=== PATIENT | female | born 1960 | race Caucasian/White ===

== ENCOUNTER 2016-11-06 05:37 | Outpatient (CLI) | payer OTHER ==
[~2016-11-06] VITALS: Ht 160 cm; Wt 76.2 kg
[2016-11-06] MEDS ORDERED: LEVO100T7 PO (11:48)
[2016-11-06] MEDS ORDERED: ALPR1TAB2 PO (11:48)
[2016-11-06] MEDS ORDERED: CHOL5000 PO (11:48)
[2016-11-06] MEDS ORDERED: HYDR-3820 PO (11:48)
[2016-11-06] MEDS ORDERED: FLUO40CA12 PO (11:48)
[2016-11-06] MEDS ORDERED: CALC600T12 PO (11:48)
[2016-11-06] MEDS ORDERED: VITA100035 PO (11:48)
[2016-11-06] MEDS ORDERED: LUTE20CA13 PO (11:48)
[2016-11-06] MEDS ORDERED: RT-ALBUINH IH (11:48)
[2016-11-06] MEDS ORDERED: OMG1KC PO (11:48)
== END 2016-11-06 11:54 ==
LOC: PREOP 05:37
PROVIDERS: ATTEND Surgery
DX: Z01.818 Encounter for other preprocedural examination (principal); Z12.11 Encounter for screening for malignant neoplasm of colon; K21.9 Gastro-esophageal reflux disease without esophagitis

== ENCOUNTER → 2017-01-22 | Outpatient (CLI) | payer OTHER ==
[~2017-01-22] MED LIST: ALPR1TAB2 PO; CALC600T12 PO; CHOL5000 PO; FLUO40CA12 PO; HYDR-3820 PO; LEVO100T7 PO; LUTE20CA13 PO; OMG1KC PO; PANT40TA2 PO; RT-ALBUINH IH; VITA100035 PO
== END ==
LOC: PREOP 05:30
PROVIDERS: ATTEND Surgery
DX: Z01.818 Encounter for other preprocedural examination (principal); Z12.11 Encounter for screening for malignant neoplasm of colon; K21.9 Gastro-esophageal reflux disease without esophagitis

== ENCOUNTER 2017-01-26 08:11 | Day surgery (SDC) | payer OTHER ==
[~2017-01-26 08:11] MED LIST changes: -PANT40TA2 PO
[2017-01-26 08:15] VITALS: BP 122/73
[2017-01-26] MEDS ORDERED: LACTATED RINGERS 1,000 ML IV STA (08:15)
[2017-01-26] MEDS ORDERED: HURRICAINE EXT TUBE (BENZOCAINE) XX PRN (08:15)
[2017-01-26] MEDS ORDERED: LACTATED RINGERS 1,000 ML IV SCH (09:00)
--- NOTE | 2017-01-26 09:00 | Progress Note-Pre Operative ---
Pre-Operative Progress Note H&P Reviewed The H&P was reviewed, patient examined and no changes noted. Date Seen by Provider: Jan 26, 2017 Time Seen by Provider: 08:58 Date H&P Reviewed: Jan 26, 2017 Time H&P Reviewed: 08:58 Pre-Operative Diagnosis: gerd, family history colonoscopy BELLA VIVEROS DO Jan 26, 2017 9:00 am
[2017-01-26] MEDS ORDERED: PROPOFOL INJECTION 0 ML IV ONE (09:38)
[2017-01-26] MEDS ORDERED: MIDAZOLAM 2 MG/2 ML (VERSED) VIAL ONE (09:38)
[2017-01-26] MEDS ORDERED: HURRICAINE EXT TUBE (BENZOCAINE) ONE (09:41)
[2017-01-26] MEDS ORDERED: PROPOFOL INJECTION 50 ML IV ONE (10:07)
[2017-01-26] MEDS ORDERED: PANT40TA2 PO (10:24)
--- NOTE | 2017-01-26 10:26 | Progress Note-Post Operative ---
Post-Operative Progess Note Surgeon (s)/Bit Bender (s) Surgeon BELLA VIVEROS DO Bit Bender: na Pre-Operative Diagnosis gerd, family history colonoscopy Post-Operative Diagnosis gastritis, diverticulosis Procedure & Operative Findings Date of Procedure 01/26/17 Procedure Performed/Findings egd c biopsies, colonoscopy c hot bx polypectomy Anesthesia Type per mda Estimated Blood Loss Estimated blood loss (mL): none Specimens/Packing Specimens Removed antrum, body, ge junction, rectal polyp BELLA VIVEROS DO Jan 26, 2017 10:26 am
--- NOTE | 2017-01-26 10:28 | Discharge Inst-Simple/Standard ---
Discharge Inst-Standard Discharge Medications New, Converted or Re-Newed RX: RX on Chart Patient Instructions/Follow Up Plan of Care/Instructions/FU: Follow up with Dr. Smith in 2 weeks Take medication as directed. Repeat colonoscopy in 5 years due to family hx of colon Ca. Activity as Tolerated: Yes Discharge Diet: Other Diet (High fiber diet) VAN TA APRN Jan 26, 2017 10:28
[2017-01-26 10:40] VITALS: BP 108/72
[2017-01-26 11:10] VITALS: BP 118/82
[2017-01-26 11:30] VITALS: BP 118/82
--- OUTSIDE RECORDS SUMMARY | 2017-01-26 19:32 | XMS REPORT ---
Author Author TAMMY ALVARADO Organization [employer] Address Unknown Phone Unavailable Care Team Providers Care Bullion Weigher Name Role Phone TAMMY ALVARADO CP Unavailable Allergies No Known Allergies Problems Problem Type Condition Code Onset Dates Condition Status Problem Cervical lesion N88.9 Active Problem Hot flashes N95.1 Active Problem Irregular menses N92.6 Active Problem Tobacco use Z72.0 Active Problem Family history of colon cancer requiring screening colonoscopy Z80.0 Active Problem Adnexal tenderness R10.2 Active Problem Tinea pedis of both feet B35.3 Active Problem Family history of heart disease Z82.49 Active Problem History of chest pain Z87.898 Active Problem Hypothyroidism, unspecified E03.9 Active Problem Family history of hypertension Z82.49 Active Problem Shortness of breath R06.02 Active Problem Chronic cough R05 Active Problem Encounter for screening colonoscopy Z12.11 Active Problem GERD (gastroesophageal reflux disease) K21.9 Active Problem Depression with anxiety F41.8 Active Problem Chronic pain G89.29 Active Problem Atypical chest pain R07.89 Active Problem Obesity E66.9 Active Problem History of renal calculi Z87.442 Active Problem Hypothyroidism E03.9 Active Medications Medication Code System Code Instructions Start Date End Date Status Dosage Hydrocodone-Acetaminophen [facility] [address]-89 10-325 MG Orally 3 times a day prn 1 tablet as needed Alprazolam [facility] [address]-09 1 MG Orally 3 times a day PRN 1 tablet Results No Known Results Summary Purpose eClinicalWorks Submission
--- OUTSIDE RECORDS SUMMARY | 2017-01-26 19:32 | XMS REPORT ---
Author Author TAMMY ALVARADO Organization [employer] Address Unknown Phone Unavailable Care Team Providers Care Caterpillar Mechanic Name Role Phone TAMMY ALVARADO CP Unavailable Allergies No Known Allergies Problems Problem Type Condition Code Onset Dates Condition Status Problem Anxiety disorder, unspecified F41.9 Active Problem Irregular menses N92.6 Active Problem Cervical lesion N88.9 Active Problem Adnexal tenderness R10.2 Active Problem Encounter for screening colonoscopy Z12.11 Active Problem Hypothyroidism, unspecified E03.9 Active Problem Family history of colon cancer requiring screening colonoscopy Z80.0 Active Problem Tobacco use Z72.0 Active Problem History of chest pain Z87.898 Active Problem Hot flashes N95.1 Active Problem Family history of hypertension Z82.49 Active Problem Family history of heart disease Z82.49 Active Problem Chronic cough R05 Active Problem Atypical chest pain R07.89 Active Problem GERD (gastroesophageal reflux disease) K21.9 Active Problem Shortness of breath R06.02 Active Problem Chronic pain G89.29 Active Problem Obesity E66.9 Active Problem History of renal calculi Z87.442 Active Problem Hypothyroidism E03.9 Active Problem Depression with anxiety F41.8 Active Problem Depression, unspecified depression type F32.9 Active Medications No Known Medications Results No Known Results Summary Purpose eClinicalWorks Submission
--- OUTSIDE RECORDS SUMMARY | 2017-01-26 19:32 | XMS REPORT ---
Author Author TAMMY ALVARADO Organization [employer] Address Unknown Phone Unavailable Care Team Providers Care Ceramics Artist Name Role Phone TAMMY ALVARADO CP Unavailable Allergies No Known Allergies Problems Problem Type Condition Code Onset Dates Condition Status Problem Cervical lesion N88.9 Active Problem Hot flashes N95.1 Active Problem Irregular menses N92.6 Active Problem Tobacco use Z72.0 Active Problem Family history of colon cancer requiring screening colonoscopy Z80.0 Active Problem Adnexal tenderness R10.2 Active Assessment Hypothyroidism E03.9 Active Problem Tinea pedis of both feet [...] Instructions Start Date End Date Status Dosage Levothyroxine Sodium [facility] 79871724613 100 MCG Orally Once a day WILL NEED LAB FOR REFILL 1 tablet Results No Known Results Summary Purpose eClinicalWorks Submission
--- OUTSIDE RECORDS SUMMARY | 2017-01-26 19:32 | XMS REPORT ---
Author Author ETELVINA CLEMONS e[employer] Address Unknown Phone Unavailable Care Team Providers Care Tail Sawyer Name Role Phone ETELVINA CLEMONS Unavailable Allergies, Adverse Reactions, Alerts Substance Reaction Event Type Sulfamethoxazole-Trimethoprim Info Not Available Drug Allergy Problems Problem Type Condition Code Onset Dates Condition Status Assessment Vaginal discharge N89.8 Active Assessment Irregular menses N92.6 Active Assessment Breast tenderness N64.4 Active Assessment Hot flashes N95.1 Active Assessment History of chest pain Z87.898 Active Assessment Family history of heart disease Z82.49 Active Assessment Family history of hypertension Z82.49 Active Assessment Hypothyroidism, unspecified E03.9 Active Assessment Adnexal tenderness R10.2 Active Problem Hypothyroidism E03.9 Active Assessment Tobacco use Z72.0 Active Problem Depression, unspecified depression type F32.9 Active Assessment Encounter for screening for malignant neoplasm of cervix Z12.4 Active Problem Anxiety disorder, unspecified F41.9 Active Problem Irregular menses N92.6 Active Problem Cervical lesion N88.9 Active Problem Adnexal tenderness R10.2 Active Problem Hypothyroidism, unspecified E03.9 Active Problem Encounter for screening colonoscopy Z12.11 Active Problem Family history of colon cancer requiring screening colonoscopy Z80.0 Active Problem Tobacco use Z72.0 Active Assessment Well woman exam Z01.419 Active Problem History of chest pain Z87.898 Active Problem Hot flashes N95.1 Active Problem Family history of hypertension Z82.49 Active Problem Family history of heart disease Z82.49 Active Assessment Cervical lesion N88.9 Active Problem Chronic cough R05 Active Assessment Screening for malignant neoplasm of breast Z12.39 Active Problem Atypical chest pain R07.89 Active Assessment Anxiety disorder, unspecified F41.9 Active Problem GERD (gastroesophageal reflux disease) K21.9 Active Assessment Screening for malignant neoplasm of colon Z12.11 Active Problem Shortness of breath R06.02 Active Problem Chronic pain G89.29 Active Assessment Depression, unspecified depression type F32.9 Active Problem Obesity E66.9 Active Problem History of renal calculi Z87.442 Active Problem Depression with anxiety F41.8 Active Medications Medication Code System Code Instructions Start Date End Date Status Dosage Omeprazole [facility] [address]-16 20 MG Orally Once a day Jul 25, 2015 2 capsules Baclofen [facility] [address]-47 10 MG Orally Three times a day PRN Jul 25, 2015 Aug 24, 2015 1 tablet with food or milk Hydrocodone-Acetaminophen [facility] [address]-63 10-325 MG Orally 3 times a day prn 1 tablet as needed Prozac [facility] [address]-24 40 MG Orally Once a day 1 capsule in the morning ProAir HFA [facility] [address]-19 108 (90 Base) MCG/ACT Inhalation every 4 hrs, PRN 2 puffs as needed Calcium 600 + D [facility] [address]82[address]492 600-200 MG-UNIT Orally 2 times a day 1 tablet Levothyroxine Sodium [facility] [address]-24 100 MCG Orally Once a day 1 tablet Alprazolam [facility] [address]-11 1 MG Orally 3 times a day PRN 1 tablet Procedures Procedure Coding System Code Date CULTURE, BACTERIA, OTHER CPT-4 14977 Jul 29, 2015 Preventive Care Est Pt. Age 40-64 CPT-4 47899 Jul 29, 2015 SPECIMEN HANDLING CPT-4 10882 Jul 29, 2015 Vital Signs Date/Time: Jul 29, 2015 Temperature 98.9 F Weight 175.9 lbs Height 63 in BMI 31.16 Index Blood Pressure Diastolic 82 mmHg Blood Pressure Systolic 126 mmHg Cardiac Monitoring Heart Rate 76 bpm Results No Known Results Summary Purpose eClinicalWorks Submission
--- OUTSIDE RECORDS SUMMARY | 2017-01-26 19:32 | XMS REPORT ---
Author Author TAMMY ALVARADO Organization e[employer] Address Unknown Phone Unavailable Care Team Providers Care Licensing Officer Name Role Phone TAMMY ALVARADO CP Unavailable [...] Instructions Start Date End Date Status Dosage Alprazolam [facility] [address]-62 1 MG Orally 3 times a day PRN 1 tablet Hydrocodone-Acetaminophen [facility] [address]-88 10-325 MG Orally 3 times a day prn 1 tablet as needed Prozac [facility] [address]-42 40 mg Orally Once a day 1 capsule in the morning Results No Known Results Summary Purpose eClinicalWorks Submission
--- OUTSIDE RECORDS SUMMARY | 2017-01-26 19:32 | XMS REPORT ---
Author Author TAMMY ALVARADO Organization [employer] Address Unknown Phone Unavailable Care Team Providers Care Profiling Machine Set Up Operator Tool Name Role Phone TAMMY ALVARADO CP Unavailable [...] Z87.442 Active Problem Hypothyroidism E03.9 Active Medications No Known Medications Procedures Procedure Coding System Code Date VENIPUNCT, ROUTINE* CPT-4 34222 Apr 29, 2016 ASSAY THYROID STIM HORMONE CPT-4 00813 Apr 29, 2016 Results Name Result Date Reference Range Unit Abnormality Flag ROUTINE VENIPUNCTURE Summary Purpose eClinicalWorks Submission
--- OUTSIDE RECORDS SUMMARY | 2017-01-26 19:32 | XMS REPORT ---
Author Author TAMMY ALVARADO Organization [employer] Address Unknown Phone Unavailable Care Team Providers Care Team Assistant Name Role Phone TAMMY ALVARADO CP Unavailable Allergies No Known Allergies Problems Problem Type Condition Code Onset Dates Condition Status Assessment Atypical chest pain R07.89 Active Assessment Depression with anxiety F41.8 Active Assessment Chronic pain G89.29 Active Problem Hypothyroidism E03.9 Active Assessment Obesity E66.9 Active Problem Depression, unspecified depression type F32.9 Active Assessment Hypothyroidism E03.9 Active Problem Anxiety disorder, unspecified F41.9 Active Problem Irregular menses N92.6 Active Problem Cervical lesion N88.9 Active Problem Adnexal tenderness R10.2 Active Problem Hypothyroidism, unspecified E03.9 Active Problem Encounter for screening colonoscopy Z12.11 Active Problem Family history of colon cancer requiring screening colonoscopy Z80.0 Active Problem Tobacco use Z72.0 Active Assessment General medical exam Z00.00 Active Problem History of chest pain Z87.898 [...] Problem Depression with anxiety F41.8 Active Medications No Known Medications Procedures Procedure Coding System Code Date GLYCATED HEMOGLOBIN TEST CPT-4 15382 Jul 29, 2015 ASSAY OF MAGNESIUM CPT-4 72301 Jul 29, 2015 ASSAY THYROID STIM HORMONE CPT-4 65364 Jul 29, 2015 CHEST X-RAY CPT-4 09357 Jul 29, 2015 X-RAY EXAM OF NECK SPINE CPT-4 41660 Jul 29, 2015 LIPID PANEL CPT-4 53287 Jul 29, 2015 COMPLETE CBC W/AUTO DIFF WBC CPT-4 74850 Jul 29, 2015 VENIPUNCT, ROUTINE* CPT-4 21952 Jul 29, 2015 COMPREHEN METABOLIC PANEL CPT-4 80581 Jul 29, 2015 Results Name Result Date Reference Range Unit Abnormality Flag ROUTINE VENIPUNCTURE Summary Purpose eClinicalWorks Submission
--- OUTSIDE RECORDS SUMMARY | 2017-01-26 19:33 | XMS REPORT ---
Author Author TAMMY ALVARADO Organization [employer] Address Unknown Phone Unavailable Care Team Providers Care Cutch Cleaner Name Role Phone TAMMY ALVARADO CP Unavailable [...] Date End Date Status Dosage Alprazolam [facility] [address]-93 1 MG Orally 3 times a day PRN 1 tablet Hydrocodone-Acetaminophen [facility] [address]-98 10-325 MG Orally 3 times a day prn 1 tablet as needed Results No Known Results Summary Purpose eClinicalWorks Submission
--- OUTSIDE RECORDS SUMMARY | 2017-01-26 19:33 | XMS REPORT ---
Author Author TAMMY ALVARADO Organization [employer] Address Unknown Phone Unavailable Care Team Providers Care Adult Ministries Director Name Role Phone TAMMY ALVARADO CP Unavailable [...]
--- OUTSIDE RECORDS SUMMARY | 2017-01-26 19:33 | XMS REPORT ---
Author Author TAMMY ALVARADO Organization [employer] Address Unknown Phone Unavailable Care Team Providers Care Automobile Detailer Name Role Phone TAMMY ALVARADO CP Unavailable [...] Start Date End Date Status Dosage Alprazolam [facility] [address]-61 1 MG Orally 3 times a day PRN 1 tablet Hydrocodone-Acetaminophen [facility] [address]-22 10-325 MG Orally 3 times a day prn 1 tablet as needed Results No Known Results Summary Purpose eClinicalWorks Submission
--- OUTSIDE RECORDS SUMMARY | 2017-01-26 19:33 | XMS REPORT ---
Author Author TAMMY ALVARADO Organization [employer] Address Unknown Phone Unavailable Care Team Providers Care Turning And Beading Machine Operator Name Role Phone TAMMY ALVARADO CP Unavailable [...] Date End Date Status Dosage Levothyroxine Sodium [facility] 38045171907 100 MCG Orally Once a day WILL NEED LAB FOR REFILL 1 tablet Results No Known Results Summary Purpose eClinicalWorks Submission
--- OUTSIDE RECORDS SUMMARY | 2017-01-26 19:33 | XMS REPORT ---
Author Author TAMMY ALVARADO Organization [employer] Address Unknown Phone Unavailable Care Team Providers Care Glove Cuffer Name Role Phone TAMMY ALVARADO CP Unavailable [...] Start Date End Date Status Dosage Alprazolam [facility] [address]-51 1 MG Orally 3 times a day PRN 1 tablet Hydrocodone-Acetaminophen [facility] [address]-99 10-325 MG Orally 3 times a day prn 1 tablet as needed Results No Known Results Summary Purpose eClinicalWorks Submission
--- OUTSIDE RECORDS SUMMARY | 2017-01-26 19:33 | XMS REPORT ---
Author Author TAMMY ALVARADO Organization [employer] Address Unknown Phone Unavailable Care Team Providers Care Television Inspector Name Role Phone TAMMY ALVARADO CP Unavailable [...] Hypothyroidism E03.9 Active Medications No Known Medications Results No Known Results Summary Purpose eClinicalWorks Submission
--- OUTSIDE RECORDS SUMMARY | 2017-01-26 19:33 | XMS REPORT ---
Author Author TAMMY ALVARADO Organization [employer] Address Unknown Phone Unavailable Care Team Providers Care Wool Presser Name Role Phone TAMMY ALVARADO CP Unavailable [...] Depression, unspecified depression type F32.9 Active Medications Medication Code System Code Instructions Start Date End Date Status Dosage Simvastatin [facility] [address]-18 10 MG Orally Once a day Aug 05, 2015 1 tablet in the evening Results No Known Results Summary Purpose eClinicalWorks Submission
--- OUTSIDE RECORDS SUMMARY | 2017-01-26 19:33 | XMS REPORT ---
Author Author TAMMY ALVARADO Organization [employer] Address Unknown Phone Unavailable Care Team Providers Care Advertising Representative Name Role Phone TAMMY ALVARADO CP Unavailable Allergies, Adverse Reactions, Alerts Substance Reaction [...] colon cancer requiring screening colonoscopy Z80.0 Active Assessment Hypothyroidism, unspecified E03.9 Active Problem Tobacco use Z72.0 Active Problem [...] calculi Z87.442 Active Problem Hypothyroidism E03.9 Active Assessment Chronic pain G89.29 Active Problem Depression with anxiety F41.8 Active Problem Depression, unspecified depression type F32.9 Active Medications Medication Code System Code Instructions Start Date End Date Status Dosage Baclofen [facility] [address]-08 10 MG Orally Three times a day PRN Jul 25, 2015 Aug 24, 2015 1 tablet with food or milk Omeprazole [facility] [address]-51 20 MG Orally Once a day Jul 25, 2015 2 capsules ProAir HFA [facility] [address]-67 108 (90 Base) MCG/ACT Inhalation every 4 hrs, PRN 2 puffs as needed Levothyroxine Sodium [facility] [address]-06 100 MCG Orally Once a day 1 tablet Prozac [facility] [address]-02 40 MG Orally Once a day 1 capsule in the morning Alprazolam [facility] [address]-03 1 MG Orally 3 times a day PRN 1 tablet Hydrocodone-Acetaminophen [facility] [address]-03 10-325 MG Orally 3 times a day prn 1 tablet as needed Calcium 600 + D [facility] 478[address]203 600-200 MG-UNIT Orally 2 times a day 1 tablet Vitamin E [facility] [address]-24 400 UNIT Orally Once a day 2 capsule Simvastatin [facility] [address]-63 10 MG Orally Once a day Aug 05, 2015 1 tablet in the evening Procedures Procedure Coding System Code Date Office Visit, Est Pt., Level 3 CPT-4 97902 Aug 15, 2015 Vital Signs Date/Time: Aug 15, 2015 Temperature 98.8 F Weight 179.4 lbs Height 63 in BMI 31.78 Index Blood Pressure Diastolic 70 mmHg Blood Pressure Systolic 116 mmHg Cardiac Monitoring Heart Rate 80 bpm Results No Known Results Summary Purpose eClinicalWorks Submission
--- OUTSIDE RECORDS SUMMARY | 2017-01-26 19:33 | XMS REPORT ---
Author Author ALVARADOTAMMY Organization [facility] Address [address] [place] [address] Care Team Providers Care Fitness Supervisor Name Role Phone ALVARADOTAMMY Quijano Unavailable PROBLEMS Type Condition ICD9-CM Code UPL45-KA Code Onset Dates Condition Status SNOMED Code Problem Irregular menses N92.6 Active 024312637 Problem History of chest pain Z87.898 Active 810101644 Problem Hot flashes N95.1 Active 980906924 Problem Tinea pedis of both feet B35.3 Active 3291218 Problem Encounter for screening colonoscopy Z12.11 Active 265623286 Problem Tobacco use Z72.0 Active 812184542 Problem Family history of colon cancer requiring screening colonoscopy Z80.0 Active 895256328 Assessment Chronic pain G89.29 Mar, Active 80650899 Problem Family history of hypertension Z82.49 Active 407055710 Problem Family history of heart disease Z82.49 Active 828996986 Problem Adnexal tenderness R10.2 Active 887376013 Problem Hypothyroidism, unspecified E03.9 Active 70905978 Problem Chronic cough R05 Active 35456025 Problem Atypical chest pain R07.89 Active 135020504 Problem GERD (gastroesophageal reflux disease) K21.9 Active 642506278 Problem Shortness of breath R06.02 Active 257506473 Problem Chronic pain G89.29 Active 90213145 Problem Obesity E66.9 Active 988688018 Problem History of renal calculi Z87.442 Active 326698759 Problem Hypothyroidism E03.9 Active 05506468 Assessment Encounter for immunization Z23 Mar, Active 020753179 Problem Depression with anxiety F41.8 Active 231509666 Problem Cervical lesion N88.9 Active 431870700 ALLERGIES Substance Reaction Event Type Date Status Sulfamethoxazole-Trimethoprim Unknown Drug Allergy Mar, Active SOCIAL HISTORY No smoking Hx information available PLAN OF CARE VITAL SIGNS Height 63 in 2016-04-09 Weight 153.2 lbs 2016-04-09 Heart Rate 76 bpm 2016-04-09 Respiratory Rate 20 2016-04-09 BMI 27.14 kg/m2 2016-04-09 Blood pressure systolic 120 mmHg 2016-04-09 Blood pressure diastolic 82 mmHg 2016-04-09 MEDICATIONS Medication Instructions Dosage Frequency Start Date End Date Duration Status Vitamin E 400 UNIT Orally Once a day 2 capsule 24h Active Ibuprofen 600 MG Orally Three times a day PRN 1 tablet Aug, Active Alprazolam 1 MG Orally 3 times a day PRN 1 tablet Active Levothyroxine Sodium 100 MCG Orally Once a day WILL NEED LAB FOR REFILL 1 tablet Active Hydrocodone-Acetaminophen 10-325 MG Orally 3 times a day prn 1 tablet as needed Active Calcium 600 + D 600-200 MG-UNIT Orally 2 times a day 1 tablet 12h Active Fish Oil 1000 MG Orally Once a day 1 capsule 24h Active Prozac 40 mg 1 capsule in the morning Once a day Orally Active Baclofen 10 mg Orally Three times a day 1 tablet with food or milk Three times a day PRN Orally 8h Active ProAir HFA 108 (90 Base) MCG/ACT Inhalation every 4 hrs, PRN 2 puffs as needed Active RESULTS No Results PROCEDURES Procedure Date Ordered Related Diagnosis Body Site FLUARIX QUAD P-FREE 3 AND UP .50 2015Apr 09, 2016 ZOSTER (ZOSTAVAX) Apr 09, 2016 IMMUNIZATION ADMIN, EACH ADD (please include units) Apr 09, 2016 SINGLE IMMUNIZATION ADMIN Apr 09, 2016 Office Visit, Est Pt., Level 3 Apr 09, 2016 IMMUNIZATIONS Vaccine Route Administration Date Status ZOSTER (ZOSTAVAX) SC Subcutaneous Apr 09, 2016 Administered FLUARIX QUAD P-FREE 3 AND UP .50 2015 IM Intramuscular Apr 09, 2016 Administered
--- OUTSIDE RECORDS SUMMARY | 2017-01-26 19:34 | XMS REPORT ---
Author Author TAMMY ALVARADO Organization eClinicalWorks Address Unknown Phone Unavailable Care Team Providers Care Heating Plant Superintendent Name Role Phone TAMMY ALVARADO CP Unavailable [...] Start Date End Date Status Dosage Alprazolam [facility] [address]-95 1 MG Orally 3 times a day PRN 1 tablet Hydrocodone-Acetaminophen [facility] [address]-17 10-325 MG Orally 3 times a day prn 1 tablet as needed Baclofen [facility] [address]-17 10 MG Orally Three times a day PRN Jul 25, 2015 1 tablet with food or milk Results No Known Results Summary Purpose eClinicalWorks Submission
--- OUTSIDE RECORDS SUMMARY | 2017-01-26 19:34 | XMS REPORT ---
Author Author TAMMY ALVARADO Organization [employer] Address Unknown Phone Unavailable Care Team Providers Care Senior Qa Engineer Name Role Phone TAMMY ALVARADO CP Unavailable Allergies, Adverse Reactions, Alerts Substance Reaction Event Type Sulfamethoxazole-Trimethoprim Info Not Available Drug Allergy Problems Problem Type Condition Code Onset Dates Condition Status Problem Encounter for screening colonoscopy Z12.11 Active Problem Shortness of breath R06.02 Active Problem GERD (gastroesophageal reflux disease) K21.9 Active Problem Obesity E66.9 Active Assessment GERD (gastroesophageal reflux disease) K21.9 Active Problem Chronic pain G89.29 Active Assessment Encounter for screening colonoscopy Z12.11 Active Assessment Family history of colon cancer requiring screening colonoscopy Z80.0 Active Problem Hypothyroidism E03.9 Active Problem Atypical chest pain R07.89 Active Problem Chronic cough R05 Active Problem Depression with anxiety F41.8 Active Problem History of renal calculi Z87.442 Active Assessment Atypical chest pain R07.89 Active Assessment History of renal calculi Z87.442 Active Assessment Shortness of breath R06.02 Active Assessment Chronic cough R05 Active Assessment Obesity E66.9 Active Assessment Hypothyroidism E03.9 Active Assessment Depression with anxiety F41.8 Active Assessment General medical exam Z00.00 Active Assessment Chronic pain G89.29 Active Problem Family history of colon cancer requiring screening colonoscopy Z80.0 Active Medications Medication Code System Code Instructions Start Date End Date Status Dosage Baclofen [facility] [address]-15 10 MG Orally Three times a day PRN Jul 25, 2015 Aug 24, 2015 1 tablet with food or milk ProAir HFA [facility] [address]-06 108 (90 Base) MCG/ACT Inhalation every 4 hrs, PRN 2 puffs as needed Levothyroxine Sodium [facility] [address]-24 100 MCG Orally Once a day 1 tablet Alprazolam [facility] [address]-81 1 MG Orally 3 times a day PRN 1 tablet Prozac [facility] [address]-95 40 MG Orally Once a day 1 capsule in the morning Hydrocodone-Acetaminophen [facility] [address]-56 10-325 MG Orally 3 times a day prn 1 tablet as needed Omeprazole [facility] [address]-77 20 MG Orally Once a day Jul 25, 2015 2 capsules Procedures Procedure Coding System Code Date DRUG SCREEN NON TLC DEVICES CPT-4 36427 Jul 25, 2015 No Charge CPT-4 16144 Jul 25, 2015 ELECTROCARDIOGRAM, TRACING CPT-4 16597 Jul 25, 2015 Office Visit, New Pt., Level 4 CPT-4 79569 Jul 25, 2015 Vital Signs Date/Time: Jul 25, 2015 Temperature 98.9 F Weight 177.6 lbs Height 63 in BMI 31.46 Index Blood Pressure Diastolic 82 mmHg Blood Pressure Systolic 122 mmHg Cardiac Monitoring Heart Rate 90 bpm Results Name Result Date Reference Range Unit Abnormality Flag EKG, TRACING (IN-HOUSE) Summary Purpose [employer] Submission
--- OUTSIDE RECORDS SUMMARY | 2017-01-26 19:34 | XMS REPORT ---
Author Author TAMMY ALVARADO Organization [employer] Address Unknown Phone Unavailable Care Team Providers Care Rail Specialist Name Role Phone TAMMY ALVARADO CP Unavailable [...] cancer requiring screening colonoscopy Z80.0 Active Assessment Chronic pain G89.29 Active Problem Tobacco use Z72.0 Active Problem [...] Z87.442 Active Problem Hypothyroidism E03.9 Active Assessment Depression with anxiety F41.8 Active Problem Depression with anxiety F41.8 Active Problem Depression, unspecified depression type F32.9 Active Medications Medication Code System Code Instructions Start Date End Date Status Dosage Levothyroxine Sodium [facility] [address]-50 100 MCG Orally Once a day 1 tablet Ibuprofen [facility] [address]-64 600 MG Orally Three times a day Sep 13, 2015 1 tablet Alprazolam [facility] [address]-95 1 MG Orally 3 times a day PRN 1 tablet Baclofen [facility] [address]-09 10 mg Orally Three times a day 1 tablet with food or milk Three times a day PRN Orally Vitamin E [facility] [address]-18 400 UNIT Orally Once a day 2 capsule Calcium 600 + D [facility] [address]858-38374 600-200 MG-UNIT Orally 2 times a day 1 tablet Fish Oil [facility] [address]-63 1000 MG Orally Once a day 1 capsule Prozac [facility] [address]-54 40 MG Orally Once a day 1 capsule in the morning Hydrocodone-Acetaminophen [facility] [address]-36 10-325 MG Orally 3 times a day prn 1 tablet as needed Omeprazole [facility] [address]-39 20 MG Orally Once a day Jul 25, 2015 2 capsules ProAir HFA [facility] [address]-65 108 (90 Base) MCG/ACT Inhalation every 4 hrs, PRN 2 puffs as needed Procedures Procedure Coding System Code Date Office Visit, Est Pt., Level 3 CPT-4 53854 November 12, 2015 Vital Signs Date/Time: November 12, 2015 Temperature 98.1 F Weight 168.9 lbs Height 63 in BMI 29.92 Index Blood Pressure Diastolic 82 mmHg Blood Pressure Systolic 116 mmHg Cardiac Monitoring Heart Rate 80 bpm Results No Known Results Summary Purpose [employer] Submission
--- OUTSIDE RECORDS SUMMARY | 2017-01-26 19:34 | XMS REPORT ---
Author Author PEGGY EARL [employer] Address Unknown Phone Unavailable Care Team Providers Care Tire Debeader Name Role Phone PEGGY EARL CP Unavailable Allergies, Adverse Reactions, Alerts Substance [...] cancer requiring screening colonoscopy Z80.0 Active Assessment Cervical lesion N88.9 Active Problem Tobacco use Z72.0 Active Problem [...] Instructions Start Date End Date Status Dosage Prozac [facility] [address]-60 40 MG Orally Once a day 1 capsule in the morning Alprazolam [facility] [address]-50 1 MG Orally 3 times a day PRN 1 tablet Vitamin E [facility] [address]-80 400 UNIT Orally Once a day 2 capsule Levothyroxine Sodium [facility] [address]-37 100 MCG Orally Once a day 1 tablet Simvastatin [facility] [address]-59 10 MG Orally Once a day Aug 05, 2015 1 tablet in the evening Baclofen [facility] [address]-03 10 MG Orally Three times a day PRN Jul 25, 2015 Aug 24, 2015 1 tablet with food or milk ProAir HFA [facility] [address]-72 108 (90 Base) MCG/ACT Inhalation every 4 hrs, PRN 2 puffs as needed Omeprazole [facility] [address]-29 20 MG Orally Once a day Jul 25, 2015 2 capsules Calcium 600 + D [facility] 75645-[address]597 600-200 MG-UNIT Orally 2 times a day 1 tablet Hydrocodone-Acetaminophen [facility] [address]-83 10-325 MG Orally 3 times a day prn 1 tablet as needed Procedures Procedure Coding System Code Date URINE TEST CPT-4 96573 Aug 15, 2015 BIOPSY OF CERVIX W/SCOPE CPT-4 70642 Aug 15, 2015 Vital Signs Date/Time: Aug 15, 2015 Temperature 98.8 F Weight 179.4 lbs Height 63 in BMI 31.78 Index Blood Pressure Diastolic 70 mmHg Blood Pressure Systolic 116 mmHg Cardiac Monitoring Heart Rate 80 bpm Results Name Result Date Reference Range Unit Abnormality Flag TEST, URINE (IN HOUSE) ----RESULTS negative [id number] ----Lot # [id number] ----Control + [id number] ----Exp date [id number] COLP W/ BX OF CERVIX Summary Purpose [employer] Submission
--- NOTE | 2017-01-27 14:56 | OPERATIVE REPORT ---
PROCEDURE PHYSICIAN: BELLA VIVEROS DATE OF PROCEDURE: 01/26/2017 PREOPERATIVE DIAGNOSES: 1. GERD. 2. Family history of colon cancer. POSTOPERATIVE DIAGNOSES: 1. Gastritis. 2. Diverticulosis. 3. Rectal polyp. PROCEDURE: 1. EGD with biopsy of the antrum, body and GE junction. 2. Colonoscopy with hot biopsy polypectomy, rectal polyp. SURGEON: Luis. ANESTHESIA: Per MDA. ESTIMATED BLOOD LOSS: None. COMPLICATIONS: None. INDICATIONS: The patient is a 56-year-old female who has been having some gastroesophageal reflux disease. She is also needs colonoscopy due to family history of colon cancer. She understands the risks and benefits of the procedures and wished to proceed with the procedures. Consent was signed on the chart. The patient was taken to the endoscopy suite, placed in left lateral recumbent position, a timeout was performed. The scope was inserted into the mouth, down esophagus, stomach and into the duodenum without difficulty. ____ (s/l subsided) demonstrated (s/l superficial portion). The scope was slowly retracted back into the stomach which demonstrated erythematous changes. A small biopsy of the antrum was obtained. No polyps, masses or ulcerations were present. The scope was retroflexed noting some mucosal changes. Biopsy of the body of the stomach was obtained where these mucosal changes were present. No hiatal hernia noted. The scope was returned to its normal position. Some erythematous changes noticed at the GE junction biopsy was obtained. The scope was slowly retracted back until completely removed noting no other pathology. COLONOSCOPY: Digital rectal exam was performed. There were no palpable polyps, masses or ulcerations. The scope was inserted into the rectum and advanced all of the way to the cecum with minimal difficulty. Prep was adequate. The scope was then slowly retracted back. There were no polyps, masses or ulcerations within the cecum, ascending, transverse, and descending colon. Within the sigmoid colon, there was a small amount of diverticulosis present. The scope was continued to be slowly retracted back to the rectum, where a small polyp was present, which hot biopsy polypectomy was performed. The scope was retroflexed noting no other pathology. The scope returned its normal position and slowly withdrawn until completely removed. RECOMMENDATIONS: The patient will be started on Protonix 40 mg daily. The patient will need repeat colonoscopy in 5 years due to family history and colon polyps. If she has any other problems prior to that, she should be reevaluated at that time. Job ID: [id number] Dictated Date: 01/26/2017 10:29:41 Densitometrist Date: 01/27/2017 14:29:42 / tj
== END 2017-01-26 11:30 | disposition home or self-care (01) ==
LOC: ENDO 08:11
PROVIDERS: ATTEND Surgery
DX: Z12.11 Encounter for screening for malignant neoplasm of colon (principal); K62.1 Rectal polyp; K57.30 Diverticulosis of large intestine without perforation or abscess without bleeding; K29.70 Gastritis, unspecified, without bleeding; Z80.0 Family history of malignant neoplasm of digestive organs; J44.9 Chronic obstructive pulmonary disease, unspecified; F17.210 Nicotine dependence, cigarettes, uncomplicated; Z79.899 Other long term (current) drug therapy
CPT/HCPCS: 88305